=== PATIENT | female | born 1950 | race Caucasian/White ===

== ENCOUNTER 2019-12-18 14:20 | Outpatient (CLI) | payer MEDICARE, SELFPAY ==
--- NOTE | 2019-12-18 14:15 | XR_ITS ---
WS: [id number] KUB, 12/18/2019 Clinical Data: BILATERAL RENAL STONES Comparison: KUB, 03/11/2019 Findings: There are densities overlying both kidneys which are probably bilateral renal calculi. There is also a clip overlying the midportion of the right kidney. There are 3 gallstones noted in the right upper quadrant. There are phleboliths in the true pelvis. XR/XR KUB [id number] Impression: 1. Probable bilateral renal calculi. 2. Cholelithiasis.
== END 2019-12-18 14:21 | disposition home or self-care (01) ==
LOC: RAD 14:25
PROVIDERS: Family Provider Family Medicine; Visit Provider Urology
DX: N20.0 Calculus of kidney (principal); K80.20 Calculus of gallbladder without cholecystitis without obstruction
CPT/HCPCS: 74018; 81001

== ENCOUNTER 2020-12-16 12:42 | Outpatient (CLI) | payer MEDICARE, SELFPAY ==
--- NOTE | 2020-12-16 13:00 | XR_ITS ---
WS: [id number] KUB, AP view, 12/16/2020 Clinical Data: RENAL CALCULUS Comparison: KUB, 12/18/2019. Findings: There are multiple bilateral renal calculi. The kidneys are obscured partly by overlying gas and feca l material. There is a surgical clip overlying the right 11th rib. There are 3 gallstones unchanged. There is a p hlebolith in the true pelvis. XR/XR KUB [id number] Impression: 1. Multiple bilateral renal calculi. 2. Cholelithiasis.
== END 2020-12-16 12:43 | disposition home or self-care (01) ==
LOC: RAD 12:48
PROVIDERS: PCP Family Medicine; Visit Provider Urology
DX: N20.0 Calculus of kidney (principal); K80.20 Calculus of gallbladder without cholecystitis without obstruction
CPT/HCPCS: 74018; 81003